=== PATIENT | male | born 1985 | race Hispanic/Latino ===

== ENCOUNTER 2021-06-06 01:57 | Emergency (ER) | payer SELFPAY ==
[2021-06-06 02:24] VITALS: BP 198/105
== END 2021-06-06 06:25 | disposition left against medical advice (07) ==
LOC: ED 01:57
DX: Z00.00 Encounter for general adult medical examination without abnormal findings (principal); Z53.21 Procedure and treatment not carried out due to patient leaving prior to being seen by health care provider